=== PATIENT | female | born 1985 | race Caucasian/White ===

== ENCOUNTER 2021-03-22 11:10 | Emergency (ER) | payer SELFPAY ==
[2021-03-22 11:18] VITALS: BP 126/86; PULSE 89; TEMP 97.8; BMI 25.7
== END 2021-03-22 12:37 | disposition home or self-care (01) ==
LOC: JER 11:10
DX: J06.9 Acute upper respiratory infection, unspecified (principal)
CPT/HCPCS: 87804; 87807; 99283-25; C9803; U0003; U0005